=== PATIENT | male | born 1990 | race Caucasian/White ===

== ENCOUNTER 2016-08-25 14:01 | Emergency (ER) | payer OTHER ==
[~2016-08-25 14:01] MED LIST: FLEXERIL10 MG PO; GUAIFENESIN-COD10 ML PO; MOTRIN600 MG PO; ZITHROMAX250 M2 PO
[2016-08-25] MEDS ORDERED: SUBOXONE 8 MG-1 EACH SL (14:10)
--- NOTE | 2016-08-25 14:55 | ED SKIN/ALLERGY COMPLAINT ---
History of Present Illness General Chief Complaint: Skin Rash/ Abcess Stated Complaint: BIBA LOCKUP FOR ABCESS Source: patient Exam Limitations: no limitations Vital Signs & Intake/Output Vital Signs & Intake/Output Vital Signs Date Time Temp Pulse Resp B/P B/P Pulse O2 O2 Flow FiO2 Mean Ox Delivery Rate 08/25 1606 98.8 57 18 136/82 97 Room Air 08/25 1542 50 138/66 08/25 1407 98.8 50 16 138/66 98 Room Air Allergies Coded Allergies: NO KNOWN ALLERGIES (04/16/12) Reconcile Medications Buprenorphine HCl/Naloxone HCl (Suboxone 8 MG-2 MG Sl Film) 8 MG-2 MG FILM 1 STR SL DAILY OPIOID DEPENDENCE (Reported) Cephalexin (Keflex) 500 MG CAPSULE 1 CAP PO BID CELLULITIS Clonidine HCl 0.1 MG TABLET 1 TAB PO TID OPIATE WITHDRAWAL Ondansetron HCl (Zofran) 4 MG TABLET 1 TAB PO Q6-8P PRN NAUSEA Sulfamethoxazole/Trimethoprim (Bactrim Ds Tablet) 800 MG-160 MG TABLET 1 TAB PO BID CELLULITIS Triage Note: PT BIBA FROM LOCKUP WITH RT UPPER ARM ABCESS. PT IS IV HEROIN USER, LAST USED YESTERDAY. STATES HE IS PRESCRIBED SUBOXONE BUT CANT TAKE IT IN [facility]. ABCESS AREA IS REDDENED AND WARM TO TOUCH. PT IS IN CUSTODY WITH POLICE AT BEDSIDE. Triage Nurses Notes Reviewed? yes Onset: Gradual Duration: constant Timing: recent history Severity: moderate Severity Numbers: 5 HPI: Patient is a 25-year-old male who presents emergency room from police lockup for concerns of heroin detox and an abscess to the right upper extremity (LATONIA DUVALL) Past History Travel History Traveled to [place] past 21 day No Medical History Any Pertinent Medical History? see below for history Neurological: NONE EENT: NONE Cardiovascular: NONE Respiratory: NONE Gastrointestinal: NONE Hepatic: NONE Renal: NONE Musculoskeletal: NONE Psychiatric: opioid dependence Endocrine: NONE Blood Disorders: NONE PROGRAMS ASSISTANT/Reproductive: NONE Surgical History Surgical History: none Psychosocial History What is your primary language Niuean Tobacco Use: Never used Illicit Drug Use: heroin Family History Hx Contributory? No (LATONIA DUVALL) Review of Systems Review of Systems Constitutional: Reports: no symptoms. EENTM: Reports: no symptoms. Respiratory: Reports: no symptoms. Cardiovascular: Reports: no symptoms. GI: Reports: no symptoms. Genitourinary: Reports: no symptoms. Musculoskeletal: Reports: no symptoms. Skin: Reports: no symptoms. Neurological/Psychological: Reports: no symptoms. Hematologic/Endocrine: Reports: no symptoms. Immunologic/Allergic: Reports: no symptoms. All Other Systems: Reviewed and Negative (LATONIA DUVALL) Physical Exam Physical Exam General Appearance: no apparent distress, alert, comfortable Head: atraumatic Eyes: Bilateral: normal appearance, PERRL. Ears, Nose, Throat: hearing grossly normal Neck: normal inspection Respiratory: normal breath sounds Peripheral Pulses: 2+ radial (R), 2+ radial (L) Extremities: normal capillary refill, normal range of motion Skin: warm/dry Diagram Body: 1) Noted 2 mm open incision with surrounding point tenderness erythema and fluctuance. No active discharge (LATONIA DUVALL) Progress Differential Diagnosis: abscess/cellulitis, allergic reaction, anaphylaxis, contact dermatitis Plan of Care: Orders Procedure Date/time Status EXTREMETIES CULTURE 08/25 1510 Active Microbiology 08/25 1600 EXTREMITIE: Culture & Sensitivity - RECD 08/25 1600 EXTREMITIE: Gram Stain - RECD Upon initial examination with mild pressure to the abscess moderate amount of purulent discharge was produced culture was obtained. Gauze and Tegaderm were applied. Patient denies any suicidal or homicidal ideation. Patient currently is receiving outpatient Suboxone. Patient will be treated for concerns of abscess cellulitis and heroin dependency. Patient was strongly advised to follow-up with Amaury Cardenas as he has an establishment outpatient Patient will be transferred back to police station. Patient was given prescriptions in which she states that he will be up to fill this while he is in lockup (LATONIA DUVALL) Departure Departure Disposition: HOME OR SELF CARE Condition: Stable Clinical Impression Primary Impression: Abscess of right arm Secondary Impressions: Heroin abuse Referrals: PATIENT HAS NO PRIMARY CARE DR (PCP/Family) Additional Instructions: As discussed please discontinue the use of heroin. Begin the prescription of clonidine for withdrawal symptoms and begin the prescription of Zofran for nausea. Begin the prescription of Bactrim and Keflex as directed for the full course. Begin to apply warm compresses the area. The bandages fall off, reapply with the extra bandages provided to the emergency room. Return to emergency room in 2 days for wound recheck. If symptoms worsen return to emergency room Departure Forms: Customer Survey General Discharge Information Prescriptions: Current Visit Scripts Cephalexin (Keflex) 1 CAP PO BID #20 CAP Sulfamethoxazole/Trimethoprim (Bactrim Ds Tablet) 1 TAB PO BID #20 TAB Clonidine HCl 1 TAB PO TID #9 TAB Ondansetron HCl (Zofran) 1 TAB PO Q6-8P PRN NAUSEA #15 TAB (LATONIA DUVALL) PA/SPD TECH Co-Sign Statement Statement: ED Attending supervision documentation- I saw and evaluated the patient. I have also reviewed all the pertinent lab results and diagnostic results. I agree with the findings and the plan of care as documented in the PA's/SPD TECH's documentation. x I have reviewed the ED Record and agree with the PA's/SPD TECH's documentation. [] Additions or exceptions (if any) to the PAs/SPD TECH's note and plan are summarized below: [] (CANDIE NAVA,JANIS) Procedures Incision and Drainage Site: LEFT UPPER EXTREMITY Blade Size: 15 I & D Procedure: Yes: betadine prep, sterile drapes applied, sterile dressing applied. No: wick placed. Progress: Using sterile technique a Betadine I anesthetize the region with 1% lidocaine 5 mL using a 15 blade I made a 1 cm incision in which mild amount of purulent discharge was produced. Culture was obtained. (LATONIA DUVALL)
[2016-08-25] MEDS ORDERED: CLONIDINE HCL0.1 MG PO (15:52)
[2016-08-25] MEDS ORDERED: ZOFRAN4 M2 PO (15:52)
[2016-08-25] MEDS ORDERED: BACTRIM DS TAB1 EACH PO (15:52)
[2016-08-25] MEDS ORDERED: KEFLEX500 M1 PO (15:52)
[2016-08-25 16:06] VITALS: BP 136/82
== END 2016-08-25 16:08 ==
LOC: ERH 14:01
DX: L02.413 Cutaneous abscess of right upper limb (principal); F11.10 Opioid abuse, uncomplicated
CPT/HCPCS: 87184; 87070; 87147